=== PATIENT | female | born 1985 | race Two or more races ===

== ENCOUNTER 2020-08-16 18:09 | Emergency (ER) | payer MEDICARE, OTHER ==
[~2020-08-16] VITALS: Ht 160 cm; Wt 70.8 kg
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
[2020-08-16] MEDS ORDERED: KETOROLAC TROMETHAMINE 15 MG/ML VIAL ONE (19:02)
[2020-08-16] MEDS: KETOROLAC TROMETHAMINE INJ 30 MG/ML VIAL IV ONE (19:09)
--- NOTE | 2020-08-16 19:13 | NUR ---
Note henry in EDM - 08/16/20 at 1923 by ROXANNE Patient discharged to home in stable condition. Written and verbal after care instructions given. Patient verbalizes understanding of instruction. Left ER in stable condition.
[2020-08-16 19:28] LABS: BASOPHILS % (AUTO) 0.4 % (0.0-2.0); EOSINOPHILS % (AUTO) 1.8 % (0.0-6.0); HEMATOCRIT 36 % (33-45); HEMOGLOBIN 12.4 g/dL (11.5-14.8); LYMPHOCYTES # (AUTO) 2.3 /CMM (0.8-4.8); LYMPHOCYTES % (AUTO) 31.3 % (20.0-44.0); MEAN CORPUSCULAR HGB CONC 34 g/dl (31.0-36.0); MEAN CORPUSCULAR VOLUME 96 fL (82-100); MONOCYTES # (AUTO) 0.4 /CMM (0.1-1.30); MONOCYTES % (AUTO) 5.8 % (2.0-12.0); NEUTROPHILS # (AUTO) 4.4 /CMM (1.8-8.9); NEUTROPHILS % (AUTO) 60.7 % (43.0-81.0); PLATELET COUNT (AUTO) 246 /CMM (150-450); RED BLOOD CELL COUNT(AUTO) 3.78 MIL/uL (4.0-5.2); WHITE BLOOD COUNT (AUTO) 7.3 K/uL (4.3-11.0)
[2020-08-16] MEDS ORDERED: CT SWABBABLE VALVE TRANS SET 1 EA INFUS.SET MC ONE (19:30)
[2020-08-16] MEDS ORDERED: IV NS 0.9% 250 ML IV ONE (19:30)
[2020-08-16] MEDS ORDERED: IOHEXOL-300 100 ML VIAL IV ONE (19:30)
[2020-08-16 19:44] LABS: BILIRUBIN,URINE SMALL (NEGATIVE); COLOR,URINE YELLOW (YELLOW); LEUKOCYTE ESTERASE ,URINE Negative (NEGATIVE); NITRITE, URINE Negative (NEGATIVE); PROTEIN,URINE Trace mg/dl (NEGATIVE); UGLUCOSE Negative (NEGATIVE)
[2020-08-16 19:46] LABS: BACTERIA,URINE Rare /HPF (None Seen); RBC,URINE NONE SEEN /HPF (0-2); SQUAMOUS EPITHELIAL CELL,UR Few /HPF (None Seen); WBC,URINE NONE SEEN /HPF (0-3)
[2020-08-16 19:47] LABS: BILIRUBIN,TOTAL 0.2 mg/dL (0.2-1.0); CALCIUM, SERUM 8.6 mg/dL (8.5-10.1); CREATININE 0.7 mg/dL (0.6-1.3); POTASSIUM 3.8 mmol/L (3.5-5.1); TOTAL PROTEIN, SERUM 7.3 g/dL (6.4-8.2)
[2020-08-16] MEDS: LORAZEPAM INJ 2 MG/ML VIAL IV ONE (20:15)
[2020-08-16] MEDS ORDERED: LORAZEPAM INJ 2 MG/ML VIAL ONE (20:15)
--- NOTE | 2020-08-16 20:15 | NUR ---
pt req anxiety meds before ct scan. dr. north with verbal order for ativan 0.5mg ivp
[2020-08-16] MEDS ORDERED: IBUP-1958 PO (21:18)
[2020-08-16] MEDS ORDERED: [UNRECOGNIZED DRUG - CODE] PO (21:18)
--- NOTE | 2020-08-16 21:41 | NUR ---
Patient discharged to home in stable condition. Written and verbal after care instructions given. Patient verbalizes understanding of instruction. IV removed. Catheter intact and site benign. Pressure and 4x4 applied to site. No bleeding noted.
[2020-08-16 21:42] VITALS: BP 140/85
[2020-08-17] MEDS ORDERED: HYDR-3972 PO (09:59)
== END 2020-08-16 21:42 | disposition home or self-care (01) ==
LOC: ER 18:21
DX: R10.9 Unspecified abdominal pain (principal); F41.9 Anxiety disorder, unspecified; Z79.899 Other long term (current) drug therapy; V49.49XA Driver injured in collision with other motor vehicles in traffic accident, initial encounter; Y93.89 Activity, other specified; Y92.488 Other paved roadways as the place of occurrence of the external cause; Y99.8 Other external cause status
CPT/HCPCS: 36415; 71260; 72125; 74177; 80048; 80076; 81001; 84703; 85025; 85730; 96374; 96375; 99284; J1885; J2060; J7050; Q9967

== ENCOUNTER 2021-03-22 23:06 | Emergency (ER) | payer MEDICARE, OTHER ==
[~2021-03-22] VITALS: Ht 154.9 cm; Wt 64.4 kg
[~2021-03-22 23:06] MED LIST: HYDR-3972 PO; IBUP-1958 PO; [UNRECOGNIZED DRUG - CODE] PO
--- NOTE | 2021-03-22 23:25 | NUR ---
BIB SELF C/O ISSUE WITH PRESCRIBED ANTIBIOTICS. WAS PRESCRIBED ABX FOR TOOTH ABSCESS AND GOT PRESCRIBED A SECONDARY ABX FOR A DOG BITE ON 03/19. PER PHARMACY PT NOT ABLE TO TAKE BOTH ABX SIMULTANEOUSLY AND PATIENT WAS UNSURE IF SHE NEEDS A NEW ABX. PRESENTS WITH A HEALING DOG BITE TO RF NO SIGNS OF INFX. ALL V/S STABLE. WAS AT THE BEDSIDE FOR EVAL.
--- NOTE | 2021-03-22 23:29 | NUR ---
LUCY PATEL AT PT'S BEDSIDE
--- NOTE | 2021-03-22 23:33 | NUR ---
Patient discharged to home in stable condition. Written and verbal after care instructions given. Patient verbalizes understanding of instruction.
[2021-03-22 23:37] VITALS: BP 123/76
== END 2021-03-22 23:39 | disposition home or self-care (01) ==
LOC: ER 23:09
DX: Z00.8 Encounter for other general examination (principal); Z71.1 Person with feared health complaint in whom no diagnosis is made; Z60.2 Problems related to living alone
CPT/HCPCS: 99281; A6403

== ENCOUNTER 2022-08-11 10:24 | Emergency (ER) | payer MEDICARE, OTHER ==
[~2022-08-11] VITALS: Ht 154.9 cm; Wt 63.5 kg
--- NOTE | 2022-08-11 10:34 | NUR ---
C/O VAGINAL BLEED "ON AND OFF" X 3 MONTHS. VITALS WITHIN NORMAL LIMITS. AWAITING MD ARENAS.
[2022-08-11 11:05] LABS: BILIRUBIN,URINE NEGATIVE (NEGATIVE); COLOR,URINE YELLOW (YELLOW); LEUKOCYTE ESTERASE ,URINE NEGATIVE (NEGATIVE); NITRITE, URINE NEGATIVE (NEGATIVE); PH,URINE 7.5 (5.0-8.0); PROTEIN,URINE TRACE mg/dl (NEGATIVE); UGLUCOSE NEGATIVE (NEGATIVE)
--- NOTE | 2022-08-11 11:14 | NUR ---
Patient discharged to home in stable condition. Written and verbal after care instructions given. Patient verbalizes understanding of instruction.
[2022-08-11 11:15] VITALS: BP 128/62
[2022-08-11 11:37] LABS: BACTERIA,URINE None seen /HPF (None Seen); RBC,URINE 51-80 /HPF (0-2); SQUAMOUS EPITHELIAL CELL,UR Few /HPF (None Seen)
== END 2022-08-11 11:15 | disposition home or self-care (01) ==
LOC: ER 10:24
DX: N93.9 Abnormal uterine and vaginal bleeding, unspecified (principal); Z79.899 Other long term (current) drug therapy; Z60.2 Problems related to living alone; Z88.0 Allergy status to penicillin
CPT/HCPCS: 99283; 84703; 81001; A6403

== ENCOUNTER 2023-04-29 17:56 | Emergency (ER) | payer MEDICARE, OTHER ==
[~2023-04-29] VITALS: Ht 154.9 cm; Wt 64.4 kg
[2023-04-29] MEDS ORDERED: KETOROLAC TROMETHAMINE INJ 30 MG/ML VIAL ONE (18:30)
[2023-04-29] MEDS ORDERED: KETOROLAC TROMETHAMINE INJ 60 MG/2 ML VIAL IM ONE (18:30)
[2023-04-29] MEDS ORDERED: HYDR-4303 PO (20:41)
[2023-04-29 20:52] VITALS: BP 118/70; TEMP 98; O2SAT 100
== END 2023-04-29 20:53 | disposition home or self-care (01) ==
LOC: ER 18:03
DX: S52.691A Other fracture of lower end of right ulna, initial encounter for closed fracture (principal); R51.9 Headache, unspecified; M54.2 Cervicalgia; Z88.0 Allergy status to penicillin; Z60.2 Problems related to living alone; V89.2XXA Person injured in unspecified motor-vehicle accident, traffic, initial encounter; Y93.89 Activity, other specified; Y92.89 Other specified places as the place of occurrence of the external cause; Y99.8 Other external cause status
CPT/HCPCS: 29125; 70450; 70486; 73080; 73090; 73110; 99284; J1885

== ENCOUNTER 2023-05-11 21:39 | Emergency (ER) | payer MEDICARE, OTHER ==
[~2023-05-11] VITALS: Ht 154.9 cm; Wt 63.5 kg
[~2023-05-11 21:39] MED LIST changes: +HYDR-4303 PO
[2023-05-11] MEDS ORDERED: oxyCODONE/APAP (5/325 MG) 1 UDTAB TABLET ONE (22:53)
[2023-05-11] MEDS ORDERED: oxyCODONE/APAP (5/325 MG) 1 UDTAB TABLET PO ONE (23:00)
[2023-05-12] MEDS ORDERED: oxyCODONE/APAP (5/325 MG) 1 UDTAB TABLET PO ONE
[2023-05-12] MEDS ORDERED: oxyCODONE/APAP (5/325 MG) 1 UDTAB TABLET ONE (00:13)
[2023-05-12] MEDS ORDERED: OXYC-128 PO (01:05)
[2023-05-12 01:52] VITALS: BP 136/89; TEMP 98.1; O2SAT 98
== END 2023-05-12 01:52 | disposition home or self-care (01) ==
LOC: ER 21:43
DX: S52.292A Other fracture of shaft of left ulna, initial encounter for closed fracture (principal); Z79.899 Other long term (current) drug therapy; Z60.2 Problems related to living alone; Z88.0 Allergy status to penicillin; V89.2XXA Person injured in unspecified motor-vehicle accident, traffic, initial encounter; Y93.89 Activity, other specified; Y92.89 Other specified places as the place of occurrence of the external cause; Y99.8 Other external cause status
CPT/HCPCS: 73090-TC

== ENCOUNTER 2023-11-25 19:53 | Emergency (ER) | payer MEDICARE, OTHER ==
[~2023-11-25] VITALS: Ht 154.9 cm; Wt 68.0 kg
[~2023-11-25 19:53] MED LIST changes: -HYDR-3972 PO; -HYDR-4303 PO; +OXYC-128 PO
[2023-11-25] MEDS ORDERED: TRAMADOL HCL 50 MG TABLET ONE (20:35)
[2023-11-25] MEDS ORDERED: IBUPROFEN 400 MG TABLET ONE (20:36)
[2023-11-25] MEDS: IBUPROFEN 400 MG TABLET PO ONE (20:38)
[2023-11-25] MEDS: TRAMADOL HCL 50 MG TABLET PO ONE (20:38)
[2023-11-25] MEDS ORDERED: TRAM50TA2 PO (21:38)
[2023-11-25] MEDS ORDERED: KETO10TA2 PO (21:38)
[2023-11-25 22:26] VITALS: BP 124/68; TEMP 98.4; O2SAT 100
== END 2023-11-25 22:27 | disposition home or self-care (01) ==
LOC: ER 19:53
DX: S52.692 Other fracture of lower end of left ulna (principal); Z79.1 Long term (current) use of non-steroidal anti-inflammatories (NSAID); Z79.891 Long term (current) use of opiate analgesic; Z60.2 Problems related to living alone; Z88.0 Allergy status to penicillin; W01.0XXD Fall on same level from slipping, tripping and stumbling without subsequent striking against object, subsequent encounter
CPT/HCPCS: 73090-TC; 73110

== ENCOUNTER 2024-01-12 21:57 | Emergency (ER) | payer MEDICARE, OTHER ==
[~2024-01-12] VITALS: Ht 154.9 cm; Wt 68.1 kg
[~2024-01-12 21:57] MED LIST changes: +KETO10TA2 PO; +TRAM50TA2 PO
[2024-01-12 22:21] VITALS: BP 101/67; TEMP 97.7
[2024-01-12] MEDS ORDERED: LIDO30AD10 TP (22:37)
[2024-01-12] MEDS ORDERED: KETOROLAC TROMETHAMINE INJ 30 MG/ML VIAL ONE (22:37)
[2024-01-12] MEDS ORDERED: BACLOFEN (10 MG) 10 MG TABLET ONE (22:37)
[2024-01-12] MEDS ORDERED: BACL5TAB PO (22:37)
[2024-01-12] MEDS: BACLOFEN (10 MG) 10 MG TABLET PO ONE (22:38)
[2024-01-12] MEDS: KETOROLAC TROMETHAMINE INJ 30 MG/ML VIAL IM ONE (22:38)
[2024-01-12] MEDS ORDERED: LIDOCAINE 5% (PATCH) 1 EA PATCH TP ONE (23:20)
[2024-01-12] MEDS: LIDOCAINE 5% (PATCH) 1 EA PATCH TP SCH (23:26)
[2024-01-12] MEDS: ACETAMINOPHEN ES 500 MG TABLET PO ONE (23:28)
[2024-01-12] MEDS ORDERED: ACETAMINOPHEN ES 500 MG TABLET ONE (23:28)
[2024-01-13 00:21] VITALS: O2SAT 98
== END 2024-01-13 00:22 | disposition home or self-care (01) ==
LOC: ER 22:05
DX: S39.012A Strain of muscle, fascia and tendon of lower back, initial encounter (principal); Z88.0 Allergy status to penicillin; Z60.2 Problems related to living alone; X58.XXXA Exposure to other specified factors, initial encounter; Y93.89 Activity, other specified; Y92.89 Other specified places as the place of occurrence of the external cause; Y99.8 Other external cause status
CPT/HCPCS: 99283; 96372; J1885